=== PATIENT | male | born 1975 | race Caucasian/White ===

== ENCOUNTER → 2021-08-14 09:44 | Outpatient (CLI) | payer OTHER, SELFPAY ==
--- NOTE | 2021-08-14 09:49 | MRI_ITS ---
STUDY: MR RIGHT SHOULDER ARTHROGRAPHY REASON FOR EXAM: Right shoulder pain for 9 months, right shoulder injury. TECHNIQUE: Standardized fat and water weighted pulse sequences were obtained in all 3 orthogonal planes after intra-articular instillation of dilute Dotarem. COMPARISON: Images from arthrogram preceding the MRI. FINDINGS: There is a full-thickness tear of the supraspinatus and infraspinatus tendons retracted approximately 3.9 cm to the level of the glenohumeral joint (T1 coronal images 5-14). There is an undersurface partial-thickness tear of the distal superior fibers of the subscapularis tendon with medial subluxation of the proximal extracapsular long biceps tendon (T1 axial image 11). Normal teres minor tendon. Normal supraspinatus muscle. Normal infraspinatus muscle. Normal subscapularis muscle. Normal teres minor muscle. Normal glenohumeral articulation. There is superior migration of the humeral head secondary to the retracted rotator cuff tear. Normal biceps labral complex. There is mild tendinosis of the intracapsular long biceps tendon (T2 sagittal images 13-15). Normal labrum. Normal capsulo- ligamentous complex. There is mild acromioclavicular arthrosis without substantial undersurface osteophytes (T2 coronal image 13). There is a Type II morphology (curved), with a neutral orientation. There is dilute gadolinium in the subacromial-subdeltoid bursa. Normal visualized coracohumeral and coracoacromial ligaments. Normal deltoid muscle. Normal trapezius muscle. MRI/Upper Ext Jt Only W/Contrast IMPRESSION: Full-thickness tear of the supraspinatus and infraspinatus tendons. Undersurface partial-thickness tear of the distal superior fibers of the subscapularis tendon with medial subluxation of the proximal extracapsular long biceps tendon. Mild tendinosis of the long biceps tendon. Mild acromioclavicular arthrosis. Electronically Signed: Mohamud Baron MD at 13:14 EST Tel , Service support ,
--- NOTE | 2021-08-14 10:30 | RAD_ITS ---
CLINICAL HISTORY: Male, 45 years old. Right shoulder pain following a fall. Weakness. PROCEDURE: ARTHROGRAM - RIGHT SHOULDER CONSENT: The procedure as well as the benefits and possible complications including infection and bleeding were explained to the patient. Informed consent was obtained. FLUOROSCOPY TIME (if supplied): (1 minute and 10 seconds) minutes/seconds Injection Information: 10 cc of dilute Dotarem Number of images obtained: 4 TECHNIQUE: (All elements of maximal sterile barrier technique followed, including US elements as applicable) The patient was in the supine position. The overlying skin was prepped and draped in the usual sterile fashion. Following local anesthetic application and under direct fluoroscopic guidance, a 22-gauge spinal needle was placed into the shoulder joint. 2 cc of [id number] was injected for confirmation. Following this, 10 cc of dilute MR contrast was injected. The patient tolerated the procedure well. Evidence of a rotator cuff tear. RAD/Arthrogram Shoulder w/ MRI IMPRESSION: Successful right shoulder arthrogram. MRI will follow. Electronically Signed: Derick Bahena MD at 12:37 EST , Service support ,
[2021-08-14] MEDS: Iopamidol 10 ML in Syringe 1 EACH 600 ML INTRAARTIC (10:40)
[2021-08-14] MEDS: Lidocaine 2% (5ml sdv) 5 ML VIAL.MPF INFILT (10:40)
== END ==
PROVIDERS: PCP Family Medicine; Referring Provider Registered Nurse; Visit Provider Registered Nurse
DX: M25.511 Pain in right shoulder (principal)
CPT/HCPCS: 23350; 73222; 77002; A9575; Q9967